=== PATIENT | female | born 1980 | race African-American/Black ===

== ENCOUNTER 2020-08-22 00:19 | Emergency (ER) | payer OTHER ==
[~2020-08-22] VITALS: Ht 167.6 cm; Wt 50.3 kg
--- NOTE | 2020-08-22 00:39 | NUR ---
called pt in wr. no one responded.
--- NOTE | 2020-08-22 00:52 | NUR ---
pt bibself c/o orange urine. Pt aaox4 breathing evenly and unlabored. pt states that she went to urgent care today and they found blood in her urine. Pt attached to monitor and pox. Pt skin warm, dry, and intact. Pt given blanket and call light within reach
--- NOTE | 2020-08-22 01:12 | NUR ---
urine sent to lab
[2020-08-22 01:20] LABS: BILIRUBIN,URINE Negative (NEGATIVE); COLOR,URINE YELLOW (YELLOW); LEUKOCYTE ESTERASE ,URINE Negative (NEGATIVE); NITRITE, URINE Negative (NEGATIVE); PROTEIN,URINE Negative (NEGATIVE); UGLUCOSE Negative (NEGATIVE); UROBILINOGEN,URINE 0.2 EU/dL (0.2)
--- NOTE | 2020-08-22 01:26 | NUR ---
taken to ct
[2020-08-22 01:46] LABS: BACTERIA,URINE Many /HPF (None Seen); SQUAMOUS EPITHELIAL CELL,UR Moderate /HPF (None Seen); WBC,URINE 0-2 /HPF (0-3)
[2020-08-22] MEDS ORDERED: SULF1TAB48 PO (01:57)
--- NOTE | 2020-08-22 02:50 | NUR ---
Patient discharged to home in stable condition. Written and verbal after care instructions given. Patient verbalizes understanding of instruction. Pt ambulatory with a steady gait
[2020-08-22 02:56] VITALS: BP 118/74
[2020-08-22] MEDS ORDERED: CEPH500C2 PO (02:56)
== END 2020-08-22 02:50 | disposition home or self-care (01) ==
LOC: ER 00:24
DX: N39.0 Urinary tract infection, site not specified (principal); Z88.2 Allergy status to sulfonamides; Z60.2 Problems related to living alone; Z79.899 Other long term (current) drug therapy
CPT/HCPCS: 81001; 84703-TC; 87086-TC